=== PATIENT | female | born 2005 | race Hispanic/Latino ===

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

== ENCOUNTER 2025-01-29 16:55 | Emergency (ER) | payer SELFPAY, OTHER ==
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
[2025-01-29] MEDS ORDERED: HYDROCODONE/APAP 5/325 MG TAB ONE (18:36)
[2025-01-29 19:22] VITALS: TEMP 97.4; O2SAT 100
[2025-01-29 19:23] VITALS: BP 127/89
== END 2025-01-29 18:49 | disposition home or self-care (01) ==
LOC: ER 16:55
DX: S60.221A Contusion of right hand, initial encounter (principal); R05.9 Cough, unspecified; J45.20 Mild intermittent asthma, uncomplicated; V49.49XA Driver injured in collision with other motor vehicles in traffic accident, initial encounter
CPT/HCPCS: 99283

== ENCOUNTER 2025-02-08 04:03 | Emergency (ER) | payer SELFPAY, OTHER ==
[2025-02-08] MEDS ORDERED: MECLIZINE HCL 12.5 MG TAB ONE (04:26)
[2025-02-08] MEDS ORDERED: NA CHLORIDE 0.9% 1,000 ML ONE (04:26)
[2025-02-08] MEDS ORDERED: ONDANSETRON 4 MG/2 ML VIAL ONE (04:26)
[2025-02-08 04:58] LABS: Sqamous Epithelial <5 /HPF (None Seen); Urine Culture Reflex Order NOT NEEDED; Urine Microscopic Reflex YN ORDER UMIC
[2025-02-08 05:01] LABS: Absolute Lymphocytes (CBC) 2.4 K/uL (0.7-4.9); Hematocrit 39.7 % (36.0-45.0); Hemoglobin 12.9 g/dL (12.0-15.0); MCH 27.1 pg (27.0-35.0); MCHC 32.5 g/dL (32.0-36.0); MCV 83.5 fL (80-100); MPV 8.2 fL (7.6-11.3); Nucleated RBC Absolute Count 0.0 (0-0); Nucleated Red Blood Cells % 0.1 % (0-0); RBC Red Blood Cell Count 4.75 M/uL (3.86-4.86); White Blood Count 7.10 thou/uL (4.3-10.9)
[2025-02-08 05:13] LABS: ALT/SGPT 19.0 U/L (13-56); AST/SGOT 12.0 U/L (15-37); Albumin 4.1 g/dL (3.4-5.0); Albumin/Globulin Ratio 1.0 (1.1-1.8); Alkaline Phosphatase 87.0 U/L (45-117); Anion Gap 7.4 mEq/L (5.0-15.0); BUN Blood Urea Nitrogen 10.0 mg/dL (7-18); Globulin 4.1 g/dL (2.3-3.5); Glucose Level 102.0 mg/dL (74-106); Lipase 22.0 U/L (13-75); Potassium 3.4 mEq/L (3.5-5.1)
[2025-02-08] MEDS ORDERED: CEFTRIAXONE 1000 MG/VIAL ONE (06:12)
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
--- NOTE | 2025-02-08 06:24 | RAD REPORT ---
INDICATION: DIZZINESS COMPARISON: No existing relevant imaging studies are available TECHNIQUE: Unenhanced CT of the head and cervical spine was performed per protocol. Multiplanar reconstructions were provided. Dose reduction techniques were utilized for this exam including automated exposure control, adjustmen ts to mA and/or kV according to patient's size, and the use of iterative reconstruction techniques. FINDINGS: CT Head: ACUTE INFARCTION: No. HEMORRHAGE: No. MASS: No. BRAIN: Clark-white matter differentiation is maintained. VENTRICLES / EXTRA-AXIAL SPACES: No hydrocephalus. BONES: Unremarkable. PARANASAL SINUSES: Unremarkable. CT Cervical Spine: VERTEBRA: No acute fracture or malalignment. ALIGNMENT: Spinal curvature is normal. DISC SPACES: Intervertebral disc spaces are maintained. FACET JOINTS: Unremarkable. SPINAL CANAL: No high-grade bony canal stenosis. SOFT TISSUES: Unremarkable. OTHER: Lung apices are clear. Tonsilloliths within the left palatine tonsil. IMPRESSION: CT Head: No acute intracranial abnormality. CT Cervical Spine: No acute osseous findings. Electronically signed by: Ole Henao DO 02/08/2025 06:10 AM CDT NR Due to temporary technical issues with the PACS/[employer] reporting system, reports are being kaylee d by the in-house radiologist without review as a courtesy to ensure prompt reporting the interpreting radiologist is fully responsible for the content of the report. Transcribed Date/Time: 02/08/2025 6:24 AM
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
[2025-02-08 07:12] VITALS: TEMP 98.2
[2025-02-08 07:14] VITALS: BP 116/87; O2SAT 100
== END 2025-02-08 06:56 | disposition home or self-care (01) ==
LOC: ER 04:03
DX: R42 Dizziness and giddiness (principal); S22.068A Other fracture of T7-T8 thoracic vertebra, initial encounter for closed fracture; S00.83XA Contusion of other part of head, initial encounter; S30.1XXA Contusion of abdominal wall, initial encounter; N39.0 Urinary tract infection, site not specified; V49.49XA Driver injured in collision with other motor vehicles in traffic accident, initial encounter
CPT/HCPCS: 36415; 70450; 70486; 71260; 72125; 74177; 76377; 80053; 81001; 81025; 83690; 85025; 96361; 96365; 96375; 99284; J0696; J2405; J7030; J8597; Q9967